=== PATIENT | male | born 1960 | race Caucasian/White ===

== ENCOUNTER → 2017-05-19 | Outpatient (CLI) | payer BC ==
--- NOTE | 2017-05-19 10:57 | PCVCIMAG ---
APPROVED REPORT Exam: Stress Echocardiogram Indication: CAD, STENT, HYPERLIPIDEMIA Patient Location: Echo lab Stress Nurse: Millie Garcia RN Status: routine HR: 78 bpm Rhythm: NSR Procedure The patient underwent an Exercise Stress Test using the Jeffry Protocol. Blood pressure, heart rate, and EKG were monitored. An Echocardiogram was performed by respiratory therapy technician in four stages in quad fashion. At peak stress, four selected images were obtained and placed side by side with resting images for comparison. Stress Test Details Stress Test: Exercise stress testing was performed using a Jeffry protocol. HR Resting HR: 78 bpmMax Heart Rate (APMHR): 161 bpm Max HR Achieved: 153 bpmTarget HR (85% APMHR): 136 bpm % of APMHR: 95 HR response to stress: Normal HR response to stress BP Resting BP: 126/80 mmHg Max BP: 152/80 mmHg ECG Resting ECG: Sinus Rhythm Stress ECG: Sinus Rhythm ST Change: Normal Recovery ECG: Sinus Rhythm Clinical Reason for Termination: ST changes, Maximal effort Stress Symptoms: Dyspnea Exercise duration: 9 min sec Highest Stage Achieved: Stage 3: 3.4 mph at 14% grade. Exercise capacity: 10.10 METs Overall Exercise Capacity for Age: Normal Scale: Active Angina Score: None Stress ECG Conclusion Clinical: Non-ischemic ECG: Non-ischemic Pre-Stress Echo The resting Echocardiogram showed normal left ventricular contractility with an estimated Ejection Fraction of about 55-60%. Post-Stress Echo The stress Echocardiogram showed normal left ventricular contractility with an estimated Ejection Fraction of about 60-65%. Clinical Normal augmentation of myocardial wall segments using a 17 segment model. Conclusion Clinical Response: Non-ischemic Exercise Capacity: Superior Stress ECG Response: Non-ischemic Stress Echo Images: Non-ischemic
== END | disposition home or self-care (01) ==
LOC: PCVCIMAG 09:00
PROVIDERS: ATTEND Internal Medicine
DX: I25.10 Atherosclerotic heart disease of native coronary artery without angina pectoris (principal); I10 Essential (primary) hypertension; E78.00 Pure hypercholesterolemia, unspecified; I65.29 Occlusion and stenosis of unspecified carotid artery; F17.210 Nicotine dependence, cigarettes, uncomplicated; Z95.5 Presence of coronary angioplasty implant and graft
CPT/HCPCS: 93325; 93351

== ENCOUNTER → 2019-06-11 | Outpatient (CLI) | payer BC ==
--- NOTE | 2019-06-11 15:13 | PCVCIMAG ---
APPROVED REPORT Indications Stenosis Risk Factors Hypertension: Hyperlipidemia Doppler Spectral Velocity Analysis PSV / EDVPSV / EDV ECA (R) 116 / 18 cm/sECA (L) 88 / 13 cm/s dICA (R) 76 / 22 cm/sdICA (L) 59 / 21 cm/s Sandi (R) 74 / 19 cm/smICA (L) 63 / 20 cm/s pICA (R) 81 / 21 cm/spICA (L) 53 / 20 cm/s Bulb (R) 69 / 22 cm/sBulb (L) 66 / 16 cm/s dCCA (R) 82 / 19 cm/sdCCA (L) 88 / 22 cm/s mCCA (R) 85 / 18 cm/smCCA (L) 88 / 22 cm/s Vert (R) 32 / 8 cm/sVert (L) 41 / 9 cm/s ICA/CCA 0.72 ICA/CCA 0.95 Basic Measurements Blood Pressure: Pulses: Right Left RightLeft Brachial(Sitting) 112/08zdPy988/70mmHgTemporal Real Time B-Mode Imaging Vert. (R)AntegradeVert. (L)Antegrade Findings RIGHT CAROTID: The carotid bulb has mild plaque. The proximal internal carotid artery shows <40% stenosis. The common carotid artery shows no significant stenosis. The external carotid artery shows no significant stenosis. LEFT CAROTID: The carotid bulb has minimal plaque. The proximal internal carotid artery shows no significant stenosis. The common carotid artery shows no significant stenosis. The external carotid artery shows no significant stenosis. Conclusion <40% stenosis of the right internal carotid artery with mild plaque. No significant stenosis of the left internal carotid artery with minimal plaque.
--- NOTE | 2019-06-11 16:15 | PCVCIMAG ---
APPROVED REPORT Study performed: 06/11/2019 14:35:37 Exam: Stress Echocardiogram Indication: CAD s/p PCI Ht: 5 ft 8 in Medical History Medical History: CAD s/p stent, PAD Cardiac Risk Factors: Hyperlipidemia, HTN, Tobacco History (Current/Recent) Previous Cardiac Procedures: PCI Pretest Chest Pain Characteristics: No chest pain Exercise History: Indeterminate Procedure The patient underwent an Exercise Stress Test using the Jelly Protocol. Blood pressure, heart rate, and EKG were monitored. An Echocardiogram was performed by chemical lab technician in four stages in quad fashion. At peak stress, four selected images were obtained and placed side by side with resting images for comparison. Stress Test Details Stress Test: Exercise stress testing was performed using a Jelly protocol. HR Resting HR: 62 bpmMax Heart Rate (APMHR): 159 bpm Max HR Achieved: 125 bpmTarget HR (85% APMHR): 135 bpm % of APMHR: 78 Recovery HR: 83 bpm HR response to stress: Blunted HR response to stress BP Resting BP: 118/72 mmHg Max BP: 162/72 mmHg Recovery BP: 118/68 mmHg BP response to stress: Normal blood pressure response to stress. ECG Resting ECG: Sinus Rhythm Stress ECG: Sinus Rhythm ST Change: Non-ischemic Maximum ST Deviation: 0 mm Arrhythmia: Rare PVCs Recovery ECG: Sinus Rhythm Recovery ST Change: Non-ischemic Recovery ST Deviation: 0 mm Recovery Arrhythmia: None Clinical Reason for Termination: Maximal effort Stress Symptoms: Dyspnea, Leg Fatigue Exercise duration: 9 min sec Highest Stage Achieved: Stage 3: 3.4 mph at 14% grade. Exercise capacity: 10.1 METs Overall Exercise Capacity for Age: Good Scale: Active Angina Score: None No complications. Stress ECG Conclusion The patient exercised according to the JELLY protocol for 9:00 mins; achieving a work level of 10.1 METS. The resting heart rate of 62 bpm alcides to a maximum heart rate of 125 bpm. This value represents 78% of the maximal, age-predicted heart rate. The resting blood pressure of 118/72 mmHg, alcides to a maximum blood pressure of 162/72 mmHg. The exercise test was stopped due to fatigue,dyspnea. Silva Treadmill Score is 9.0 which is Low risk. Pre-Stress Echo The resting Echocardiogram showed normal left ventricular contractility with an estimated Ejection Fraction of about 55-60%. Normal wall motion in all segments on baseline images. Post-Stress Echo The stress Echocardiogram showed normal left ventricular contractility with an estimated Ejection Fraction of about 65-70%. Normal augmentation of wall motion in all segments on post stress images. Clinical No clinical or ECG evidence for ischemia. Conclusion Clinical Response: Non-ischemic Exercise Capacity: Average Stress ECG Response: Non-ischemic Stress Echo Images: Non-ischemic Normal stress echocardiogram with submaximal exercise stress. <Conclusion> Normal stress echocardiogram with submaximal exercise stress.
== END | disposition home or self-care (01) ==
LOC: PCVCIMAG 13:47
PROVIDERS: ATTEND Internal Medicine
DX: I65.23 Occlusion and stenosis of bilateral carotid arteries (principal); E78.5 Hyperlipidemia, unspecified; I10 Essential (primary) hypertension; I25.10 Atherosclerotic heart disease of native coronary artery without angina pectoris; I34.1 Nonrheumatic mitral (valve) prolapse; R06.00 Dyspnea, unspecified; F17.200 Nicotine dependence, unspecified, uncomplicated; E78.00 Pure hypercholesterolemia, unspecified; Z87.898 Personal history of other specified conditions
CPT/HCPCS: 93325; 93351; 93880